=== PATIENT | male | born 1985 | race Two or more races ===

== ENCOUNTER 2018-03-05 19:53 | Emergency (ER) | payer SELFPAY ==
[~2018-03-05] VITALS: Ht 188 cm; Wt 73.0 kg
[2018-03-05 21:45] LABS: CLARITY URINE CLOUDY (CLEAR); COLOR URINE YELLOW (YELLOW); KETONES URINE TRACE (NEGATIVE); LEUKOCYTE ESTERASE URINE 3+ (NEGATIVE); NITRITE URINE POSITIVE (NEGATIVE); OCCULT BLOOD URINE 2+ (NEGATIVE); PROTEIN URINE 2+ (NEGATIVE); SPECIFIC GRAVITY URINE 1.023 (1.005-1.030)
[2018-03-06] MEDS ORDERED: ONDANSETRON HCL 4MG/2ML VIAL IV STA (01:57)
[2018-03-06] MEDS ORDERED: SODIUM CHLORIDE 0.9% 1,000 ML IV ONE (01:57)
[2018-03-06] MEDS ORDERED: MORPHINE SULFATE 2 MG/ML CPJ (NOT FOR IM USE) IV ONE (02:00)
[2018-03-06 02:14] LABS: EOSINOPHILS % 6.8 % (0.0-5.0); HEMOGLOBIN. 13.5 g/dL (14.0-18.0); LYMPHOCYTES % 33.4 % (20.0-50.0); MEAN CORPUSCULAR HEMOGLOBIN 30.4 pg (28.0-32.0); MEAN CORPUSCULAR VOLUME 90.2 fL (80.0-94.0); MEAN PLATELET VOLUME 8.8 fl (7.4-10.4); MONOCYTES % 9.3 % (2.0-8.0); NEUTROPHILS % 49.5 % (40.0-76.0); PLATELET 233 x1000/uL (130-400); RED BLOOD CELL COUNT 4.44 mill/uL (4.7-6.1); RED CELL DISTRIBUTION WIDTH 12.9 % (11.6-14.6)
[2018-03-06 02:21] LABS: CHLORIDE 105 mEq/L (98-107)
[2018-03-06 02:23] LABS: PROTHROMBIN TIME 10.8 sec (9.4-11.6)
[2018-03-06] MEDS ORDERED: CEFTRIAXONE 2 G PREMIX 50 ML IV ONE (04:30)
[2018-03-06] MEDS ORDERED: IBUPROFEN 600MG TABLET PO ONE (05:45)
[2018-03-06 06:35] VITALS: BP 110/70
== END 2018-03-06 06:45 | disposition home or self-care (01) ==
LOC: ER 22:02
DX: N12 Tubulo-interstitial nephritis, not specified as acute or chronic (principal); F17.200 Nicotine dependence, unspecified, uncomplicated; Z87.440 Personal history of urinary (tract) infections
CPT/HCPCS: 36415; 74176; 80053; 81003; 83690; 85025; 85610; 87077; 87086; 87186; 96361; 96365; 96375; 99285; J0696; J2270; J2405; J7030; Z7610

== ENCOUNTER 2025-03-10 11:44 | Emergency (ER) | payer SELFPAY ==
[~2025-03-10] VITALS: Ht 188 cm; Wt 74.0 kg
[2025-03-10 11:53] VITALS: O2SAT 99
[2025-03-10] MEDS: DEXAMETHASONE 10 MG/ML VIAL IV ONE (13:02)
[2025-03-10] MEDS: ACETAMINOPHEN 500MG TABLET PO ONE (13:02)
[2025-03-10] MEDS ORDERED: AMOX500T2 MT (13:39)
[2025-03-10 14:02] VITALS: BP 122/85; PULSE 66; RESP 18; TEMP 37.2; O2SAT 100
== END 2025-03-10 14:03 | disposition home or self-care (01) ==
LOC: ER 11:44
DX: J02.0 Streptococcal pharyngitis (principal); F12.90 Cannabis use, unspecified, uncomplicated; Z90.49 Acquired absence of other specified parts of digestive tract
CPT/HCPCS: 99283; 96374; 87430; J1100